=== PATIENT | male | born 1955 | race Caucasian/White ===

== ENCOUNTER 2018-11-19 08:00 | Day surgery (SDC) | payer OTHER ==
[~2018-11-19 08:00] MED LIST: Lactated Ringers 1,000 ML IV SCH; Sodium Chloride 0.9% 10 ML Syringe FLUSH PRN
[2018-11-19] MEDS ORDERED: Propofol 200 MG/20 ML SDV IV ONE (08:01)
[2018-11-19] MEDS ORDERED: Midazolam 1 MG/ML 2 ML SDV IV ONE (08:01)
--- NOTE | 2018-11-19 10:39 | PCM.OPNOTE ---
- General Post-Op/Procedure Note Date of Surgery/Procedure: 11/19/18 Operative Procedure(s): c scope Findings: normal exam Pre Op Diagnosis: personal hx of colon polyps Post-Op Diagnosis: normal exam Anesthesia Technique: MAC Primary Surgeon: Juan José Bond Anesthesia Provider: Quin Morel Pathology: none Complications: None Condition: Good Free Text/Narrative:: see dictation
--- NOTE | 2018-11-19 11:42 | OR ---
DATE OF OPERATION: 11/19/2018 SURGEON: Juan José Bond MD PROCEDURE PERFORMED: Colonoscopy. PREOPERATIVE DIAGNOSIS: Personal history of colon polyps. POSTOPERATIVE DIAGNOSIS: Normal exam. INDICATIONS FOR PROCEDURE: This is a 63-year-old white male who has a history of colon polyps. He is due for a followup scope. He was offered and accepted same. DESCRIPTION OF OPERATION: After an excellent IV sedation was administered, digital rectal exam was performed. No marked abnormality was noted. Flexible colonoscope was inserted and advanced to the cecum. Prep was excellent. The following findings were noted. Ascending colon, just above the cecum, tattoo was noted from his previous biopsy sites. No evidence of any growth. Transverse colon, unremarkable. Descending colon, unremarkable. Sigmoid and rectum, unremarkable. RECOMMENDATIONS: Repeat colonoscopy in 10 years. /[id number] /MODL
== END 2018-11-19 11:20 | disposition home or self-care (01) ==
LOC: FB.SDS 08:00
PROVIDERS: ATTEND Surgery
DX: Z12.11 Encounter for screening for malignant neoplasm of colon (principal); Z86.010 Personal history of colon polyps; Z79.1 Long term (current) use of non-steroidal anti-inflammatories (NSAID)
CPT/HCPCS: 45378; J2250; J2704; J7120